=== PATIENT | male | born 1960 | race Two or more races ===

== ENCOUNTER 2019-11-30 12:37 | Inpatient (IN) | payer BC ==
[~2019-11-30] VITALS: Ht 162.6 cm; Wt 71.7 kg
--- NOTE | 2019-11-30 12:39 | Emergency Room Report ---
History of Present Illness General Chief Complaint: Dizziness Source: Patient Present Illness HPI 58-year-old male presents with 1 week of chills, subjective fevers, dysuria, no known aggravating relieving factors severity is moderate, constant earlier today he felt lightheaded, chills and felt like he was about to pass out no chest pain or shortness of breath no nausea no vomiting, he does endorse some suprapubic pain achy in nature patient presents for evaluation Allergies: Coded Allergies: No Known Allergies (Unverified , 11/30/19) Patient History Past Medical History: see triage record Reviewed Nursing Documentation: PMH: Agreed; PSxH: Agreed Review of Systems All Other Systems: negative except mentioned in HPI Physical Exam Sp02 EP Interpretation: reviewed, normal General Appearance: well appearing, no apparent distress, alert Head: normocephalic, atraumatic Eyes: bilateral eye PERRL, bilateral eye EOMI ENT: uvula midline, dry mucus membranes Neck: supple, thyroid normal, supple/symm/no masses Respiratory: lungs clear, no respiratory distress, no retraction, no accessory muscle use Cardiovascular #1: normal peripheral pulses, regular rate, rhythm, no edema, no gallop, no murmur Gastrointestinal: non tender, soft, no guarding, no rebound Musculoskeletal: normal inspection Neurologic: alert, oriented x3 Psychiatric: mood/affect normal Skin: no rash, warm/dry Medical Decision Making Diagnostic Impression: Primary Impression: Dehydration Additional Impressions: Sepsis Qualified Codes: A41.9 - Sepsis, unspecified organism UTI (urinary tract infection) Qualified Codes: N30.01 - Acute cystitis with hematuria ER Course 58-year-old male presents with fever/chills x1 week, dysuria, signs and symptoms are concerning for urosepsis versus sepsis versus syncope Patient found to have a UTI elevated lactic as well as elevated white blood cell count Patient given fluids additionally patient given ceftriaxone Patient admitted to Dr. Sullivan Laboratory Tests Test 11/30/19 13:00 11/30/19 13:15 White Blood Count 14.1 K/UL (4.8-10.8) H Red Blood Count 4.06 M/UL (4.70-6.10) L Hemoglobin 13.8 G/DL (14.2-18.0) L Hematocrit 37.3 % (42.0-52.0) L Mean Corpuscular Volume 92 FL (80-99) Mean Corpuscular Hemoglobin 34.0 PG (27.0-31.0) H Mean Corpuscular Hemoglobin Concent 36.9 G/DL (32.0-36.0) H Red Cell Distribution Width 10.2 % (11.6-14.8) L Platelet Count 251 K/UL (150-450) Mean Platelet Volume 6.1 FL (6.5-10.1) L Neutrophils (%) (Auto) % (45.0-75.0) Lymphocytes (%) (Auto) % (20.0-45.0) Monocytes (%) (Auto) % (1.0-10.0) Eosinophils (%) (Auto) % (0.0-3.0) Basophils (%) (Auto) % (0.0-2.0) Differential Total Cells Counted 100 Neutrophils % (Manual) 93 % (45-75) H Lymphocytes % (Manual) 1 % (20-45) L Monocytes % (Manual) 4 % (1-10) Eosinophils % (Manual) 0 % (0-3) Basophils % (Manual) 1 % (0-2) Band Neutrophils 1 % (0-8) Platelet Estimate Adequate Platelet Morphology Normal Red Blood Cell Morphology Normal Prothrombin Time 11.2 SEC (9.30-11.50) Prothrombin Time INR 1.1 (0.9-1.1) PTT 22 SEC (23-33) L Sodium Level 142 MMOL/L (136-145) Potassium Level 3.6 MMOL/L (3.5-5.1) Chloride Level 105 MMOL/L (98-107) Carbon Dioxide Level 23 MMOL/L (21-32) Anion Gap 14 mmol/L (5-15) Blood Urea Nitrogen 13 mg/dL (7-18) Creatinine 1.1 MG/DL (0.55-1.30) Estimate Glomerular Filtration Rate > 60 mL/min (>60) Glucose Level 138 MG/DL (74-106) H Lactic Acid Level 2.50 mmol/L (0.4-2.0) H Calcium Level 8.5 MG/DL (8.5-10.1) Phosphorus Level 1.6 MG/DL (2.5-4.9) L Magnesium Level 1.6 MG/DL (1.8-2.4) L Total Bilirubin 1.0 MG/DL (0.2-1.0) Aspartate Amino Transferase (AST) 24 U/L (15-37) Alanine Aminotransferase (ALT) 39 U/L (12-78) Alkaline Phosphatase 71 U/L (46-116) Total Creatine Kinase 55 U/L (26-308) Troponin I 0.000 ng/mL (0.000-0.056) Pro-B-Type Natriuretic Peptide 109 pg/mL (0-125) Total Protein 7.0 G/DL (6.4-8.2) Albumin 3.5 G/DL (3.4-5.0) Globulin 3.5 g/dL Albumin/Globulin Ratio 1.0 (1.0-2.7) Lipase 135 U/L (73-393) Thyroid Stimulating Hormone (TSH) 1.776 uiU/mL (0.358-3.740) Free Thyroxine 1.42 NG/DL (0.76-1.46) Free Triiodothyronine 2.0 pg/mL (2.3-4.2) L Urine Color Yellow Urine Appearance Clear Urine pH 6 (4.5-8.0) Urine Specific [place] 1.015 (1.005-1.035) Urine Protein 2+ (NEGATIVE) H Urine Glucose (UA) Negative (NEGATIVE) Urine Ketones 1+ (NEGATIVE) H Urine Blood 4+ (NEGATIVE) H Urine Nitrite Positive (NEGATIVE) H Urine Bilirubin Negative (NEGATIVE) Urine Urobilinogen Normal MG/DL (0.0-1.0) Urine Leukocyte Esterase 2+ (NEGATIVE) H Urine RBC 5-10 /HPF (0 - 0) H Urine WBC 20-30 /HPF (0 - 0) H Urine Squamous Epithelial Cells Occasional /LPF Urine Bacteria Moderate /HPF (NONE) H EKG Diagnostic Results EKG Time: 13:03 EP Interpretation: Sinus tachycardia, rate 104, QTc 433, no acute ST lesions, left axis deviat Rhythm Strip Diag. Results Rhythm Strip Time: 13:09 EP Interpretation: yes Rate: 111 Rhythm: other - Sinus tachycardia Chest X-Ray Diagnostic Results Chest X-Ray Diagnostic Results : Chest X-Ray Ordered: Yes # of Views/Limited/Complete: 1 View Indication: Other - Weakness EP Interpretation: Yes Interpretation: no consolidation, no effusion, no pneumothorax, no acute cardiopulmonary disease Impression: No acute disease Electronically Signed by: Terrance Murphy MD CT/MRI/US Diagnostic Results CT/MRI/US Diagnostic Results : Impression Procedure: CT Abdomen Pelvis w/Contrast Clinical Indication: Abdominal pain Technique: No oral contrast utilized, per emergency room physician request IV administration nonionic contrast. Venous phase spiral acquisition obtained through the abdomen and pelvis. Multiplanar reconstructions were generated. Total dose length product 1126 mGycm. CTDIvol(s) 20 mGy. Dose reduction achieved using automated exposure control Comparison: none Findings: Lack of enteric contrast limits assessment of the GI tract. There is evidence of prior appendectomy. There are colonic diverticula. No evidence of acute diverticulitis. No small bowel distention. No free or loculated intraperitoneal gas or fluid is evident. The distal esophagus, stomach, duodenum are unremarkable. The liver is unremarkable. The gallbladder contains one or more small cholesterol stones. No biliary ductal dilatation. The pancreas, spleen, adrenals are unremarkable. The right kidney demonstrates an irregular 1 cm low-attenuation cyst. Adjacent to this, however, is an intermediate attenuation somewhat ill-defined low soft tissue attenuation structure. This measures approximately 1 cm in diameter. Posterior to this, there is another separate 1 cm intermediate soft tissue attenuation lesion. The kidneys also demonstrate bilateral subcentimeter low-attenuation lesions which are too small to characterize. No renal or ureteral calculi, hydronephrosis, or hydroureter. No retroperitoneal or mesenteric mass or adenopathy. No pelvic mass or adenopathy. Hernia mesh anchors are seen in the anterior abdominal wall. The bones demonstrate a bubbly lesion and widening of the right ischiopubic junction. The lung bases demonstrate at least 2 calcified granulomata on the right. Impression: Limited assessment of the GI tract, due to lack of enteric contrast administration 2 ill-defined indeterminate attenuation 1 cm right renal lesions. Suspect that these represent, greatest cysts, but solid neoplasm as etiology of either these is also possible. Consider urology consultation and contrast MRI for further evaluation. Other subcentimeter low-attenuation renal lesions, too small to characterize, most likely benign cortical cysts. No further follow-up necessary for these No acute abnormality Slightly expansile bony lesion of the right ischiopubic junction. A be an old nonossifying fibroma or area of fibrous dysplasia, among other possibilities. Consider bone scan to determine if metabolically active Colonic diverticulosis Cholelithiasis Evidence of prior anterior abdominal wall hernia repair Evidence of old granulomatous disease within the right lung The CT scanner at [facility] is accredited by the [employer] and the scans are performed using protocols designed to limit radiation exposure to as low as reasonably achievable to attain images of sufficient resolution adequate for diagnostic evaluation. Dictated By: Mykel Ruelas MD Electronically Signed By: Mykel Ruelas MD Signed Date/Time 11/30/19 1443 CC: Terrance Murphy MD Disposition: ADMITTED INPATIENT Condition: Stable Terrance Murphy MD Nov 30, 2019 12:39
[2019-11-30] MEDS ORDERED: Omnipaque-300 100ml vial INJ PRN (12:45)
[2019-11-30] MEDS ORDERED: cefTRIAXone 1 GM in NS 55 ML IVPB ONE (12:45)
--- NOTE | 2019-11-30 12:45 | NUR ---
ED Nurse Note: Patient brought into ED from home by RA 3 from work, c/o of feeling sick for 1-2 weeks. today, patient reports dizziness and weakness. patient reports he had trouble urinating, urine amount was significantly reduced than normal. patient c/o pain on his penis at this time. per EMS, they were not able to get orthostatic VS, as patient got too dizzy. Instructed patient to stay in bed and call for help when in need. patient verbalized understanding. BS on the scene was 103. patient is a/o x3 breathing unlabored and even. patient placed on a hospital gown and on a snack steward.
--- NOTE | 2019-11-30 13:08 | Diagnostic Imaging Report ---
. Indication: Chest pain Technique: One view of the chest Comparison: none Findings: Lungs and pleural spaces are clear. Heart size is normal. Impression: No acute process
[2019-11-30 13:17] VITALS: BP 97/57
[2019-11-30 13:22] LABS: HEMATOCRIT 37.3 % (42.0-52.0); HEMOGLOBIN 13.8 G/DL (14.2-18.0); MEAN CORPUSCULAR VOLUME 92 FL (80-99); PLATELET COUNT 251 K/UL (150-450); RED BLOOD COUNT 4.06 M/UL (4.70-6.10); RED CELL DISTRIBUTION WIDTH 10.2 % (11.6-14.8); WHITE BLOOD COUNT 14.1 K/UL (4.8-10.8)
[2019-11-30 13:24] LABS: INR 1.1 (0.9-1.1)
[2019-11-30 13:43] LABS: ANION GAP 14 mmol/L (5-15); BLOOD UREA NITROGEN 13 mg/dL (7-18); CALCIUM 8.5 MG/DL (8.5-10.1); CARBON DIOXIDE 23 MMOL/L (21-32); CHLORIDE 105 MMOL/L (98-107); CREATININE 1.1 MG/DL (0.55-1.30); POTASSIUM 3.6 MMOL/L (3.5-5.1); SODIUM 142 MMOL/L (136-145)
--- NOTE | 2019-11-30 13:50 | NUR ---
ED Nurse Note: patient refused straight cath at this time. fever of 101.5F oral. notified to Dr. Murphy.
[2019-11-30 13:53] LABS: APPEARANCE,URINE CLEAR; BILIRUBIN, URINE NEGATIVE (NEGATIVE); GLUCOSE, URINE (UA) NEGATIVE (NEGATIVE); KETONES,URINE 1+ (NEGATIVE); LEUKOCYTE ESTERASE ,URINE 2+ (NEGATIVE); NITRITE,URINE POSITIVE (NEGATIVE); PH,URINE 6 (4.5-8.0); PROTEIN,URINE 2+ (NEGATIVE); UROBILINOGEN,URINE NORMAL MG/DL (0.0-1.0)
[2019-11-30 13:57] LABS: ALANINE AMINOTRANSFERASE 39 U/L (12-78); ALBUMIN 3.5 G/DL (3.4-5.0); ALKALINE PHOSPHATASE 71 U/L (46-116); ASPARTATE AMINO TRANSFERASE 24 U/L (15-37); CREATINE KINASE 55 U/L (26-308); PHOSPHORUS 1.6 MG/DL (2.5-4.9)
[2019-11-30 14:00] LABS: COLOR,URINE YELLOW
--- NOTE | 2019-11-30 14:00 | NUR ---
ED Nurse Note: patient taken to CT.
[2019-11-30] MEDS ORDERED: Acetaminophen 500mg (ES) tab ORAL ONE (14:15)
--- NOTE | 2019-11-30 14:49 | Diagnostic Imaging Report ---
Clinical Indication: Abdominal pain Technique: No oral contrast utilized, per emergency room physician request IV administration nonionic contrast. Venous phase spiral acquisition obtained through the abdomen and pelvis. Multiplanar reconstructions were generated. Total dose length product 1126 mGycm. CTDIvol(s) 20 mGy. Dose reduction achieved using automated exposure control Comparison: none Findings: Lack of enteric contrast limits assessment of the GI tract. There is evidence of prior appendectomy. There are colonic diverticula. No evidence of acute diverticulitis. No small bowel distention. No free or loculated intraperitoneal gas or fluid is evident. The distal esophagus, stomach, duodenum are unremarkable. The liver is unremarkable. The gallbladder contains one or more small cholesterol stones. No biliary ductal dilatation. The pancreas, spleen, adrenals are unremarkable. The right kidney demonstrates an irregular 1 cm low-attenuation cyst. Adjacent to this, however, is an intermediate attenuation somewhat ill-defined low soft tissue attenuation structure. This measures approximately 1 cm in diameter. Posterior to this, there is another separate 1 cm intermediate soft tissue attenuation lesion. The kidneys also demonstrate bilateral subcentimeter low-attenuation lesions which are too small to characterize. No renal or ureteral calculi, hydronephrosis, or hydroureter. No retroperitoneal or mesenteric mass or adenopathy. No pelvic mass or adenopathy. Hernia mesh anchors are seen in the anterior abdominal wall. The bones demonstrate a bubbly lesion and widening of the right ischiopubic junction. The lung bases demonstrate at least 2 calcified granulomata on the right. Impression: Limited assessment of the GI tract, due to lack of enteric contrast administration 2 ill-defined indeterminate attenuation 1 cm right renal lesions. Suspect that these represent, greatest cysts, but solid neoplasm as etiology of either these is also possible. Consider urology consultation and contrast MRI for further evaluation. Other subcentimeter low-attenuation renal lesions, too small to characterize, most likely benign cortical cysts. No further follow-up necessary for these No acute abnormality Slightly expansile bony lesion of the right ischiopubic junction. A be an old nonossifying fibroma or area of fibrous dysplasia, among other possibilities. Consider bone scan to determine if metabolically active Colonic diverticulosis Cholelithiasis Evidence of prior anterior abdominal wall hernia repair Evidence of old granulomatous disease within the right lung The CT scanner at [facility] is accredited by the [employer] and the scans are performed using protocols designed to limit radiation exposure to as low as reasonably achievable to attain images of sufficient resolution adequate for diagnostic evaluation.
--- NOTE | 2019-11-30 14:50 | NUR ---
ED Nurse Note: lactic reflex sent to lab
[2019-11-30 15:20] VITALS: BP 102/62
--- NOTE | 2019-11-30 15:28 | NUR ---
ED Nurse Note: report given to Fe RN, endorsed all plan of care to Fe RN.
--- NOTE | 2019-11-30 15:45 | NUR ---
ED Nurse Note: patient transferred to 2E with all of his belongings. reynoso counted with Min RN, reynoso placed in the pocket witnessed by patient, patient reports he will give reynoso to his as soon as she comes. endorsed patient to SHELBIE ARIAS.
[2019-11-30 17:00] VITALS: BP 91/56
--- NOTE | 2019-11-30 17:12 | NUR ---
NURSE NOTES: Admitted patient from ER to TELE floor rm [id number]. Patient is AAO X4, able to make needs known. Patient has pain 6/10 in the penis area, Dr. Sullivan aware. All belongings given to - Veena except the patient's glasses, I-phone and wallet. All money given to . Patient is breathing normal on RA, no acute distress noted. Skin is intact. Patient ambulates with steady gait. IV's on both L and Rb wrist are intact and patent. Dr. Sullivan saw the patient, all admission orders received and carried out. All admission orders followed. Oriented patient to room and nurses. Bed is in lowest position, brakes engaged for safety, call light is within easy reach. Will continue to monitor patient and continue with the plan of care.
--- NOTE | 2019-11-30 19:32 | NUR ---
HAND-OFF: Report given to CÉSAR Denise.Patient is in stable condition.
[2019-11-30] MEDS: Atorvastatin 20mg tab ORAL SCH (20:55)
--- NOTE | 2019-11-30 21:15 | History and Physical Report ---
DATE OF ADMISSION: 11/30/2019 HISTORY OF PRESENT ILLNESS: This is an elderly 58-year-old white male came to the emergency room for having abdominal pain, fever, chills for last few days and also complaining of burning in the urine and dehydrated. Blood pressure was low when he came to the emergency room. The patient is currently more awake, alert, and feeling better. PAST MEDICAL HISTORY: Significant for hypertension, hyperlipidemia, hypothyroidism. MEDICATIONS: He is taking levothyroxine. He is taking losartan, aspirin, and simvastatin. ALLERGY: NKA. FAMILY HISTORY: Noncontributory. SOCIAL HISTORY: He lives at home with the family. He denies any smoking or drinking. Denies any illegal drugs. REVIEW OF SYSTEMS: Generalized weakness, tired, fatigue, abdominal pain, and recurrent fever. PHYSICAL EXAMINATION: VITAL SIGNS: Blood pressure is 102/62, pulse 93, temperature 99.3, saturation 98%. SKIN: Dry. HEENT: AT/NC. Extraocular muscles intact. PERRLA. NECK: Supple. No JVD. CHEST: Bilaterally clear. CARDIOVASCULAR: Regular rhythm. No gallop. No murmur. ABDOMEN: Soft. Positive bowel sounds. Nontender. EXTREMITIES: No edema. GENITOURINARY: Deferred. LABORATORY DATA: White counts are 14,000, hemoglobin 14, hematocrit 44, platelets are normal. Chemistry panel, lactic acid is 2.50, BUN 13, creatinine 1.1. Magnesium is 1.6. LABORATORY AND DIAGNOSTIC DATA: CT of abdomen, the patient is showing ill-defined cyst, slightly extensive bony lesion of right fibroma, colonic diverticulosis, cholelithiasis, evidence of abdominal wall hernia repair. He also had a chest x-ray and the patient is in no acute process. ASSESSMENT: 1. Acute pyelonephritis. 2. Hypotension. 3. Sepsis. 4. History of hypertension. 5. Hypothyroidism. 6. History of hyperlipidemia. 7. History of acute appendicitis. PLAN: We will admit on a telemetry bed. We will start IV fluid NS 100 mL/hour. Zosyn 3.375 g IV q.8 h. Check cultures. Consider ID consult. Continue home medications. Franki Sullivan M.D. DR: DINESH JOB#: [id number] CC:
[2019-11-30] MEDS: Piperacillin/Tazobactam 3.375 GM in NS 110 ML IVPB SCH (22:29)
[2019-12-01 04:00] VITALS: BP 111/69
[2019-12-01] MEDS: Piperacillin/Tazobactam 3.375 GM in NS 110 ML IVPB SCH ×2 (05:26→13:14)
[2019-12-01 06:33] VITALS: BP_SYST 100
--- NOTE | 2019-12-01 07:20 | NUR ---
HAND-OFF: Report given to CÉSAR HADLEY.DENIES PAIN..
--- NOTE | 2019-12-01 07:30 | NUR ---
NURSE NOTES: Received pt from HARPER LINDSEY. Pt is awake and alert and eating breakfast by observation. pt is in RA, no SOB or acute respiratory distress noted. pt has intact iv access RH 20G is running well. All needs attended, bed is locked and is in the lowest position, call light within easy reach. will continue to monitor.
[2019-12-01 08:00] VITALS: BP 119/74
[2019-12-01] MEDS: Aspirin Baby 81mg ORAL SCH (09:06)
[2019-12-01] MEDS: Losartan 50mg tab ORAL SCH (09:06)
[2019-12-01 12:00] VITALS: BP 100/59
--- NOTE | 2019-12-01 14:21 | NUR ---
CASE MANAGEMENT: 58 Y/O MALE FROM HOME BIBA CC: DIZZINESS, WEAKNESS URINARY PROBLEMS SI: SEPSIS, DEHYDRATION, UROSEPSIS 98.8 18 114 108/58 98% RA WBC 14.1 GLU 138 LACTIC ACID 2.50 PHOS 1.6 MG 1.6 FREE T-3 2.0 URINE CX~ GRAM NEG BACILLUS UA PROT 2+ UA BLOOD 4+ UA WBC 20-30 UA KETONES 1+ UA BACTERIA MODERATE BLOOD CXS~ GRAM VARIABLE RODS IS: CT ABD/PELVIS CXR TYLENOL 1GM PO IBUPROFEN 600 MG NACL 1L X1 ROCEPHIN 1GM IV ~~~~~TELEMETRY 2 [facility]
--- NOTE | 2019-12-01 15:43 | NUR ---
NURSE NOTES: Dr HERNANDEZ is aware about T 101.7, ordered to D/C ZOSYN and ordered MEROPENEM 1G IV Q8HR, Noted and carried out. will continue to monitor.
[2019-12-01 15:54] VITALS: BP 117/71
--- NOTE | 2019-12-01 16:15 | Progress Note ---
DATE: 12/01/2019 SUBJECTIVE: This is a 58-year-old male who came to the emergency room for abdominal pain, nausea, vomiting, and recurrent fever. The patient also had fever this morning. He is complaining mild abdominal pain on the right lower abdomen. OBJECTIVE: VITAL SIGNS: Blood pressure 119/74, pulse 89, respirations 20s, T-max was 102. HEENT: Eyes are open. CHEST: Bilaterally clear. CARDIOVASCULAR: Regular rhythm. ABDOMEN: Soft. Mild lower abdominal tenderness. GENITOURINARY: Deferred. The patient is status post appendectomy. LABORATORY DATA: Labs are pending. Microbiology growing gram-negative bacilli. ASSESSMENT: 1. Fever, rule out sepsis. 2. UTI. The patient on Zosyn, levothyroxine, losartan, and ibuprofen. For fever, consider ID consult. Franki Sullivan M.D. DR: Nancy JOB#: [id number] CC:
--- NOTE | 2019-12-01 17:15 | Consultation ---
DATE OF CONSULTATION: 12/01/2019 INFECTIOUS DISEASE CONSULTATION CONSULTING PHYSICIAN: Lulú Caceres M.D. REFERRING PHYSICIAN: Jean Carlos Sullivan M.D. REASON FOR CONSULTATION: Urinary tract infection. HISTORY OF PRESENT ILLNESS: This is a 58-year-old gentleman with history of hypertension, hypothyroidism, and hypercholesterolemia, who comes in with fever, chills along with cough, and shortness of breath. He had some nausea and vomiting earlier in the week, now he is found to have urinary tract infection and an Infectious Diseases consultation has been obtained for antibiotics. PAST MEDICAL HISTORY: 1. History of hypertension. 2. Hypothyroidism. 3. Hypercholesterolemia. 4. History of hernia repair. SOCIAL HISTORY: He used to be a smoker. He does not smoke anymore. He used to drink alcohol. He does not drink anymore. No history of drug use. FAMILY HISTORY: His mother had breast cancer. REVIEW OF SYSTEMS: RESPIRATORY: He has fever and chills. He has cough. He has shortness of breath. No chest pain. CARDIAC: No chest pain. No palpitations. No dizziness. No syncope. GASTROINTESTINAL: He had nausea and vomiting that is resolved. No abdominal pain or diarrhea. MEDICATIONS: As an inpatient, he is on Cozaar, aspirin, levothyroxine, Zosyn, Lipitor, and Tylenol. ALLERGIES: No known drug allergies. PHYSICAL EXAMINATION: VITAL SIGNS: Temperature 102, T-max of 102, pulse 89, respiratory rate 20, and blood pressure 119/74. O2 saturation of 97%. HEENT: Pupils are equally reactive to light and accommodation. Mouth appears clean without thrush. NECK: Supple. No adenopathy. No JVD. CARDIOVASCULAR: Regular rate and rhythm. No murmurs. LUNGS: Clear to auscultation bilaterally. No crackles. No wheezes. ABDOMEN: Soft and nontender. No organomegaly. EXTREMITIES: No cyanosis, no clubbing, no edema. LABORATORY AND DIAGNOSTIC DATA: White count 14.1, hemoglobin 13.8, hematocrit 37.3, MCV 92, and platelet count 251,000 with neutrophils of 93%. Sodium 142, potassium 3.6, chloride 105, bicarb 23, BUN 13, and creatinine 1.1. Glucose 138. Calcium 8.5. Total bilirubin 1, AST 24, ALT 39, and alkaline phosphatase 71. CK of 55. Brain-natriuretic peptide 109. Total protein of 7, albumin 3.5. Lipase of 135. UA is showing 20 to 30 white cells. Urine culture is showing gram-negative rods. CT abdomen and pelvis showing right two ill-defined right renal lesions. They likely represents cysts. Colonic diverticulosis. Cholelithiasis. abdominal wall hernia repair. Old granulomatous disease within the right lung. Chest x-ray was unremarkable. ASSESSMENT: This is a 58-year-old gentleman with history of hypertension, hypothyroidism, and hypercholesterolemia, who comes in with fever, chills, cough and shortness of breath along with nausea and vomiting that is improving, and is found to have, 1. Gram-negative urinary tract infection. 2. Fever. 3. Leukocytosis. PLAN: 1. Continue Zosyn for now. 2. We will follow up cultures and adjust antibiotics accordingly. I would like to thank Dr. Sullivan for this consultation. Lulú Caceres M.D. DR: GEETHA JOB#: [id number] CC:
[2019-12-01] MEDS: Meropenem 1 GM in NS 55 ML IVPB SCH (17:23)
--- NOTE | 2019-12-01 19:32 | NUR ---
HAND-OFF: Report given to DAISY LINDSEY. Pt is awake and stable.
[2019-12-01 20:00] VITALS: BP 128/75
[2019-12-01] MEDS: Atorvastatin 20mg tab ORAL SCH (21:25)
[2019-12-02] VITALS: BP 118/71
[2019-12-02] MEDS: Meropenem 1 GM in NS 55 ML IVPB SCH ×3 (00:35→16:45)
[2019-12-02 04:00] VITALS: BP 130/75
--- NOTE | 2019-12-02 07:30 | NUR ---
NURSE NOTES: Received pt from DAISY LINDSEY. Pt is awake and alert and eating breakfast by observation. pt is in RA, no SOB or acute respiratory distress noted. pt has intact iv access RH 20G is running well. All needs attended, bed is locked and is in the lowest position, call light within easy reach. will continue to monitor.
[2019-12-02 08:00] VITALS: BP 128/79
[2019-12-02] MEDS: Losartan 50mg tab ORAL SCH (09:04)
[2019-12-02] MEDS: Aspirin Baby 81mg ORAL SCH (09:04)
[2019-12-02 12:00] VITALS: BP 119/83
--- NOTE | 2019-12-02 12:38 | Infectious Diseases Prog Note ---
Assessment/Plan Assessment/Plan A; Gram negative sepsis Pyelonephritis/UTI with E. coli ESBL HPN Hypothyroidism P; Continue Meropenem Will f/u cultures Subjective ROS Limited/Unobtainable: No Constitutional: Reports: fever, other - in am Respiratory: Reports: no symptoms Gastrointestinal/Abdominal: Reports: constipation Genitourinary: Reports: dysuria, other - getting better Allergies: Coded Allergies: No Known Allergies (Unverified , 11/30/19) Objective Vital Signs Last 24 Hour Vital Signs Date Time Temp Pulse Resp B/P (MAP) Pulse Ox O2 Delivery O2 Flow Rate FiO2 12/02/19 09:35 98.1 12/02/19 09:04 128/79 12/02/19 09:00 Room Air 12/02/19 08:00 98.1 74 18 128/79 (95) 97 12/02/19 07:45 80 12/02/19 04:00 101.8 82 17 130/75 (93) 96 12/02/19 04:00 71 12/02/19 00:00 80 12/02/19 00:00 102.6 82 16 118/71 (87) 95 12/01/19 21:00 Room Air 12/01/19 20:00 82 12/01/19 20:00 96.9 85 17 128/75 (92) 95 12/01/19 15:54 101.7 73 20 117/71 (86) 98 12/01/19 15:29 72 Height (Feet): 5 Height (Inches): 4.00 Weight (Pounds): 158 General Appearance: no acute distress HEENT: mucous membranes moist Respiratory/Chest: lungs clear Cardiovascular: normal rate Abdomen: other - right flank ( Costovertebral angle) tenderness Microbiology Date/Time Source Procedure Growth Status 11/30/19 13:00 Blood Blood Culture - Preliminary Gram Negative Reinier Resulted 11/30/19 13:00 Blood Blood Culture - Preliminary NO GROWTH AFTER 24 HOURS Resulted 11/30/19 13:15 Urine,Clean Catch Urine Culture - Final Escherichia Coli - Esbl Complete Current Medications Medications (Trade) Dose Ordered Sig/Sharon Route PRN Reason Start Time Stop Time Status Last Admin Dose Admin Acetaminophen (Tylenol) 650 mg Q4H PRN ORAL Mild Pain/Temp > 100.5 11/30/19 17:30 12/30/19 17:29 12/02/19 09:05 Aspirin (ASA) 81 mg DAILY ORAL 12/01/19 09:00 12/31/19 08:59 12/02/19 09:04 Atorvastatin Calcium (Lipitor) 20 mg BEDTIME ORAL 11/30/19 21:00 12/30/19 20:59 12/01/19 21:25 Iohexol (OMNIPAQUE-300 100ml) 100 ml NOW PRN INJ Radiology Procedure 11/30/19 12:45 12/02/19 12:35 Levothyroxine Sodium (Synthroid) 75 mcg DAILY@0630 ORAL 12/01/19 06:30 12/31/19 06:29 12/02/19 06:21 Losartan Potassium (Cozaar) 50 mg DAILY ORAL 12/01/19 09:00 12/31/19 08:59 12/02/19 09:04 Meropenem 1 gm/ Sodium Chloride 55 ml @ 110 mls/hr Q8H IVPB 12/01/19 17:00 12/06/19 16:59 12/02/19 09:05 Sodium Chloride 1,000 ml @ 100 mls/hr Q10H IV 11/30/19 17:30 12/30/19 17:29 12/02/19 09:05 Fawad Meehan MD Dec 02, 2019 12:38
--- NOTE | 2019-12-02 13:41 | NUR ---
NURSE NOTES: Dr ANDERSON visited pt and ordered to DC iv fluid and ordered to transfer pt to 4E, all orders noted and carried out. will continue to monitor.
[2019-12-02 16:00] VITALS: BP 130/99
--- NOTE | 2019-12-02 17:15 | NUR ---
NURSE NOTES: pt is alert and orient x4 and stable, transferred pt to 4E, all belongings are with pt. report given to DONOVAN RN. Endorsed to monitor pt for fever.
--- NOTE | 2019-12-02 17:20 | NUR ---
NURSE NOTES: Received patient on bed awake. Transferred to room. No SOB or acute distress. Vital signs taken and recorded. Belongings accounted for. Body check done, no skin issues noted. IV lines on right wrist g20 SL and left wrist g20 SL, both intact and patent, no s/sx of infiltration. Bed locked in lowest position. Call light within reach. Will continue to monitor.
--- NOTE | 2019-12-02 19:14 | NUR ---
HAND-OFF: Report given to Maria M.
--- NOTE | 2019-12-02 19:50 | NUR ---
NURSE NOTES: Received patient in bed, awake, alert, oriented, able to make his needs known, IV site is clean dry and intact, call light is within reach, bed is lowered, locked and alarm is on. Will continue to monitor for comfort and safety.
[2019-12-02 20:00] VITALS: BP 140/94
[2019-12-02] MEDS ORDERED: Atorvastatin 20mg tab ORAL SCH (21:00)
[2019-12-03] VITALS: BP 137/95
[2019-12-03] MEDS: Meropenem 1 GM in NS 55 ML IVPB SCH ×2 (00:42→08:42)
[2019-12-03 04:00] VITALS: BP 145/87
--- NOTE | 2019-12-03 07:40 | NUR ---
HAND-OFF: Report given to Nathaly LINDSEY.
--- NOTE | 2019-12-03 07:41 | NUR ---
NURSE NOTES: Received patient awake. No SOB or acute distress. IV lines intact and patent. Afebrile. HOB elevated. Bed locked in lowest position. Call light within reach. Will continue plan of care.
[2019-12-03 08:00] VITALS: BP 146/99
[2019-12-03 08:41] VITALS: BP 146/99
[2019-12-03] MEDS ORDERED: Losartan 50mg tab ORAL SCH (09:00)
[2019-12-03] MEDS ORDERED: Aspirin Baby 81mg ORAL SCH (09:00)
[2019-12-03] MEDS ORDERED: BACTRIM DS TAB1 EAC1 ORAL (11:06)
[2019-12-03] MEDS ORDERED: TYLENOL EXTRA500 MG ORAL (11:08)
[2019-12-03] MEDS ORDERED: CRANBERRY200 M1 PO (11:36)
--- NOTE | 2019-12-03 12:54 | Infectious Diseases Prog Note ---
Assessment/Plan Assessment/Plan A; E. coli sepsis Pyelonephritis/UTI with E. coli ESBL HPN Hypothyroidism P; Agree with discharge with PO Bactrim Subjective ROS Limited/Unobtainable: No Constitutional: Reports: no symptoms Respiratory: Reports: no symptoms Gastrointestinal/Abdominal: Reports: no symptoms Genitourinary: Reports: dysuria, other - very mid itching at time of urination Allergies: Coded Allergies: No Known Allergies (Unverified , 11/30/19) Objective Vital Signs Last 24 Hour Vital Signs Date Time Temp Pulse Resp B/P (MAP) Pulse Ox O2 Delivery O2 Flow Rate FiO2 12/03/19 08:41 146/99 12/03/19 08:00 97.9 75 16 146/99 (115) 99 12/03/19 06:27 98.9 12/03/19 04:00 98.9 73 12 145/87 (106) 98 12/03/19 00:00 98.4 70 16 137/95 (109) 98 12/02/19 21:22 Room Air 12/02/19 20:00 99.5 80 16 140/94 (109) 98 12/02/19 16:00 99.7 71 19 130/99 (109) 97 12/02/19 15:33 75 12/02/19 15:04 98.2 Height (Feet): 5 Height (Inches): 4.00 Weight (Pounds): 158 General Appearance: no acute distress HEENT: mucous membranes moist Respiratory/Chest: lungs clear Cardiovascular: normal rate Abdomen: soft, non tender Extremities: no edema Neurologic/Psychiatric: alert, oriented x 3, responsive Microbiology Date/Time Source Procedure Growth Status 11/30/19 13:00 Blood Blood Culture - Final Escherichia Coli - Esbl Complete 11/30/19 13:00 Blood Blood Culture - Preliminary NO GROWTH AFTER 48 HOURS Resulted 11/30/19 13:15 Urine,Clean Catch Urine Culture - Final Escherichia Coli - Esbl Complete Current Medications Medications (Trade) Dose Ordered Sig/Sharon Route PRN Reason Start Time Stop Time Status Last Admin Dose Admin Acetaminophen (Tylenol) 650 mg Q4H PRN ORAL Mild Pain/Temp > 100.5 12/02/19 17:30 12/30/19 17:29 12/03/19 05:53 Aspirin (ASA) 81 mg DAILY ORAL 12/03/19 09:00 12/31/19 08:59 12/03/19 08:41 Atorvastatin Calcium (Lipitor) 20 mg BEDTIME ORAL 12/02/19 21:00 12/30/19 20:59 12/02/19 20:30 Levothyroxine Sodium (Synthroid) 75 mcg DAILY@0630 ORAL 12/03/19 06:30 12/31/19 06:29 12/03/19 05:52 Losartan Potassium (Cozaar) 50 mg DAILY ORAL 12/03/19 09:00 12/31/19 08:59 12/03/19 08:41 Meropenem 1 gm/ Sodium Chloride 55 ml @ 110 mls/hr Q8H IVPB 12/03/19 01:00 12/06/19 16:59 12/03/19 08:42 Fawad Meehan MD Dec 03, 2019 12:54
--- NOTE | 2019-12-03 14:34 | NUR ---
NURSE NOTES: Patient for discharge to home via bus tap card going to his vehicle in [facility], accompanied by . All belongings accounted for. ID band removed. IV lines removed, no s/sx of infiltration. No skin issues noted. Discharge instructions given, verbalized understanding. Discharged in stable condition.
--- NOTE | 2019-12-03 15:09 | NUR ---
CASE MANAGEMENT:REVIEW 12/02/2019 SI;SEPSIS 99.7 80 19 140/94 97% RA LABS - NONE IS;IV MEROPENEM Q8 HRS SYNTHROID PO QD MED SURG STATUS DCP;HOME
--- NOTE | 2019-12-04 23:11 | Discharge Summary ---
Discharge Summary Discharge Summary _ DATE OF ADMISSION: 11/30/2019 DATE OF DISCHARGE: 12/03/2019 DISCHARGED BY: Dr. Jean Carlos Sullivan CONSULTANTS: Dr. Lulú Caceres BRIEF HOSPITAL COURSE: The patient is a 58-year-old male, who came to the emergency room due to abdominal pain, fever and chills for the past few days and also complained of burning in the urine. His blood pressure was low, he came to the emergency room for further evaluation. He has medical history significant for hypertension, hyperlipidemia and hypothyroidism. Upon evaluation at ED, WBC was elevated to 14. Hemoglobin and hematocrit were stable. Electrolytes were normal. Lactic acid elevated to 2.5. Troponin was negative. Urinalysis showed 20-30 urine WBC, 5-10 urine RBC, +2 leukocyte esterase, positive nitrite. EKG showed sinus tachycardia. Chest x-ray with no acute disease. CT of the abdomen and pelvis with contrast showed no acute abnormality. He was started empirically on ceftriaxone. Given elevated lactic acid, WBC and abnormal UTI, patient was admitted for further evaluation. ID was consulted. Urine culture showed growth of ESBL E. coli. Patient was initially given Zosyn, antibiotic was changed to meropenem. Blood culture showed growth of ESBL E. coli. Patient was stable. He was cleared for discharge home to continue p.o. Bactrim. FINAL DIAGNOSES: E. coli sepsis ESBL E. coli UTI/pyelonephritis Hypertension Hypothyroidism DISPOSITION: Patient was discharged home. DISCHARGE MEDICATIONS: Refer to Discharge Medication List. DISCHARGE INSTRUCTIONS: Follow-up in a week. I have been assigned to complete a discharge summary on this account, I was not involved with the patient's management.--ELI Barreto Jacqueline Robles NP Dec 04, 2019 23:11
--- NOTE | 2019-12-05 11:37 | NUR ---
CASE MANAGEMENT: CM review and clinical information (face sheet/ ER MD report/ H&P/ DC summary) faxed to [facility] @ [phone]. T#[id number]
--- NOTE | 2019-12-07 10:04 | NUR ---
*-* INSURANCE *-* DISCHARGE SUMMARY AND DISCHARGE INSTRUCTIONS HAVE BEEN FAXED TO: [facility] REF# [id number] P: [phone] EXT. [phone] F: [phone]
== END 2019-12-03 15:00 | disposition home or self-care (01) | DRG 872 ==
LOC: EDBD 12:37 → EMR 13:00 → 2E 13:50 → EDBEDREQ 14:55 → 2E 16:18 → 4E 12-02 17:20
DX: A41.51 Sepsis due to Escherichia coli [E. coli] (principal); N10 Acute pyelonephritis; N39.0 Urinary tract infection, site not specified; Z16.12 Extended spectrum beta lactamase (ESBL) resistance; E86.0 Dehydration; E03.9 Hypothyroidism, unspecified; I10 Essential (primary) hypertension; E78.5 Hyperlipidemia, unspecified; Z79.82 Long term (current) use of aspirin; Z87.891 Personal history of nicotine dependence
CPT/HCPCS: 36415; 71045; 74177; 80053; 81003; 82550; 83605; 83690; 83735; 83880; 84100; 84439; 84443; 84481; 84484; 85007; 85025; 85610; 85730; 87040; 87086; 87181; 93005; 96365; 96366; 96367; 99285; J7030